=== PATIENT | male | born 1950 | race Caucasian/White ===

== ENCOUNTER → 2017-10-18 | Outpatient (CLI) | payer OTHER ==
--- NOTE | 2017-10-19 09:15 | Diagnostic Imaging Report ---
EXAMINATION: PET-CT TECHNIQUE: Serum glucose level at the time of the study is: 95 mg/dL. 12.2 mCi of FDG was administered intravenously followed by obtaining PET images with corresponding noncontrast CT scan images. The CT scan was performed for anatomic correlation and attenuation correction and was not performed according to the diagnostic protocol of the areas covered. The scan was performed from the head to mid thighs. INDICATION: Right lung mass FINDINGS: There is symmetric FDG uptake seen in the brain. There is mild activity seen in the neck around the vocal cords probably physiologic. There is a right lung apex peripheral low degree of FDG uptake with maximum SUV of 2.4. This is not particularly suspicious however the mass itself has irregular borders and is somewhat concerning. There are smaller nodules seen in the right upper lobe as well less than a centimeter in size, too small for accurate PET characterization. There is no significantly hypermetabolic lesion seen in the mediastinum or jimmie. The right hilum demonstrate borderline nonspecific uptake with maximum SUV of less than 2.5. Abdomen and pelvis: There is physiologic excretion of the tracer in the urinary tract there is a nonfocal moderate uptake seen in the colon without suspicious hypermetabolic mass seen. CT scan findings include diverticulosis with no evidence of diverticulitis. IMPRESSION: Irregular 3.4 cm mass in the right lung apex with no significant hypermetabolism. There are some satellite subcentimeter nodules also seen in the right upper lobe. The morphology and size of the mass is concerning despite the lack of significant hypermetabolism. The lesion is accessible for CT-guided biopsy which could be helpful in this case. Differential considerations may include necrotic malignancy or low-grade neoplasm such as a bronchoalveolar carcinoma versus atypical or fungal infection. Correlate clinically. Report was faxed to office of Elsa Espinoza by manoj at 9:17 am. Dictated by: Dictated on workstation # [id number]
== END ==
LOC: RAD 07:47
PROVIDERS: ATTEND Nurse Practitioner
DX: R91.8 Other nonspecific abnormal finding of lung field (principal)

== ENCOUNTER 2017-11-10 07:27 | Day surgery (SDC) | payer OTHER ==
[2017-11-10] VITALS (9 sets, daily range): BP systolic 124–146; BP diastolic 73–98
[~2017-11-10] VITALS: Ht 188 cm; Wt 74.8 kg
[2017-11-10 07:51] LABS: MEAN PLATELET VOLUME 10.3 FL (7.4-10.4); RED BLOOD COUNT 4.82 10^6/uL (4.35-5.85); RED CELL DISTRIBUTION WIDTH 12.8 % (10.0-14.5); WHITE BLOOD COUNT 5.5 10^3/uL (4.3-11.0)
[2017-11-10] MEDS ORDERED: LIDOCAINE 1% INJ 20 ML (XYLOCAINE) VIAL INJ ONE (08:00)
[2017-11-10 08:02] LABS: INR 0.9 (0.8-1.4); PROTHROMBIN TIME PATIENT 12.1 SEC (12.2-14.7)
[2017-11-10] MEDS ORDERED: LIDOCAINE 1% INJ 50 ML (XYLOCAINE) VIAL ONE (09:38)
[2017-11-10] MEDS ORDERED: fentaNYL INJECTION 100 MCG/2 ML AMP ONE (09:38)
[2017-11-10] MEDS ORDERED: HYDROcodone/APAP 5 MG/325 MG (LORTAB) TAB PO PRN (10:30)
--- NOTE | 2017-11-10 10:30 | Pre-Procedure Progress Note ---
Pre-Procedure Progress Note H&P Reviewed The H&P was reviewed, patient examined and no changes noted. Date H&P Reviewed: Nov 10, 2017 Time H&P Reviewed: 09:30 Pre-Procedure Diagnosis: right lung apex mass TRISTON VELA MD Nov 10, 2017 10:30
--- NOTE | 2017-11-10 10:56 | Diagnostic Imaging Report ---
EXAMINATION: CT-guided biopsy-lung. INDICATION: Right lung apex mass. Current history and physical and other medical records are reviewed prior to the procedure. CONSENT: Informed consent was obtained from the patient. The risks, benefits, potential complications and alternatives were reviewed and all questions answered to the patient's satisfaction. The patient's vital signs, cardiac rhythm, and pulse oximetry were observed throughout the procedure by qualified nursing personnel. Sedation/medications: none. FINDINGS: Right lung apex mass. PROCEDURE: After maximal sterile barrier technique preparation and draping, 1% lidocaine was utilized for local anesthesia. With the patient in right side down position, and via posterior intercostal approach, a 19-gauge guide needle is introduced into the right lung apex mass under CT scan guidance. After confirming adequate positioning with saved CT images, multiple 20 gauge core biopsy specimens were obtained. Autologous blood patch injected in the tract as the guide needle was removed The patient tolerated the procedure well with no immediate complications. IMPRESSION: Successful CT-guided biopsy of right lung apex mass. Dictated by: Dictated on workstation # [id number]
--- NOTE | 2017-11-10 18:19 | Diagnostic Imaging Report ---
Portable expiratory view of the chest. INDICATION: Right lung apex mass. FINDINGS: There is bilateral pleural thickening seen in the lung apices with a right lung apex mass seen. There is no pneumothorax after biopsy seen. There is interstitial thickening in the lungs, which could be related to minimal congestion or is possibly chronic. No prior studies are available for comparison. The heart size is normal. No pleural effusion. The mediastinum and jimmie appear unremarkable. IMPRESSION: No pneumothorax after biopsy of right lung apex mass. Interstitial thickening which could relate to mild vascular congestion or is possibly chronic. Dictated by: Dictated on workstation # [id number]
== END 2017-11-10 14:10 | disposition home or self-care (01) ==
LOC: 4TH 07:27 → RAD 07:27 → 4TH 10:50 → RAD 10:50
PROVIDERS: ATTEND Nurse Practitioner Family
DX: R91.8 Other nonspecific abnormal finding of lung field (principal)
CPT/HCPCS: 36415; 71035; 77012; 85027; 85610; 85730

== ENCOUNTER 2017-11-18 13:11 | Outpatient (RCR) | payer OTHER ==
[2017-11-18 13:45] LABS: BASOPHILS % (AUTO) 1 % (0-10); EOSINOPHILS % (AUTO) 1 % (0-10); HEMATOCRIT 45 % (40-54); HEMOGLOBIN 15.2 G/DL (13.3-17.7); LYMPHOCYTES # (AUTO) 1.7 X 10^3 (1.0-4.0); LYMPHOCYTES % (AUTO) 28 % (12-44); MEAN CORPUSCULAR HEMOGLOBIN 29 PG (25-34); MEAN CORPUSCULAR HGB CONC 34 G/DL (32-36); MEAN CORPUSCULAR VOLUME 86 FL (80-99); MEAN PLATELET VOLUME 10.1 FL (7.4-10.4); MONOCYTES # (AUTO) 0.4 X 10^3 (0.0-1.0); MONOCYTES % (AUTO) 7 % (0-12); NEUTROPHILS # (AUTO) 3.9 X 10^3 (1.8-7.8); NEUTROPHILS % (AUTO) 64 % (42-75); PLATELET COUNT 242 10^3/uL (130-400); RED BLOOD COUNT 5.17 10^6/uL (4.35-5.85); RED CELL DISTRIBUTION WIDTH 12.8 % (10.0-14.5); WHITE BLOOD COUNT 6.2 10^3/uL (4.3-11.0)
[2017-11-18 14:03] LABS: ALBUMIN 4.7 GM/DL (3.2-4.5); BILIRUBIN,TOTAL 1.2 MG/DL (0.1-1.0); CALCIUM 10.3 MG/DL (8.5-10.1); CREATININE SERUM 1.31 MG/DL (0.60-1.30); POTASSIUM 4.1 MMOL/L (3.6-5.0); TOTAL PROTEIN 8.3 GM/DL (6.4-8.2)
== END 2018-02-16 | disposition home or self-care (01) ==
LOC: LAB 13:11
PROVIDERS: ATTEND Internal Medicine Critical Care Medicine
DX: R91.8 Other nonspecific abnormal finding of lung field (principal)
CPT/HCPCS: 36415; 80053; 85025; 86480

== ENCOUNTER → 2017-11-18 | Outpatient (CLI) | payer OTHER | LOC: LAB 13:03 | PROVIDERS: ATTEND Internal Medicine Critical Care Medicine | DX: R91.8 Other nonspecific abnormal finding of lung field (principal) ==

== ENCOUNTER → 2018-03-01 | Outpatient (CLI) | payer OTHER ==
[~2018-03-01] MED LIST: RT-ALBUTEROL SULF 2.5 MG/3 ML PRE-MIX VIAL INH ONE
== END ==
LOC: RT 07:10
PROVIDERS: ATTEND Nurse Practitioner Family
DX: R06.00 Dyspnea, unspecified (principal); R91.8 Other nonspecific abnormal finding of lung field; Z87.891 Personal history of nicotine dependence
CPT/HCPCS: 94060; 94726; 94729

== ENCOUNTER → 2018-03-01 | Outpatient (CLI) | payer OTHER ==
[~2018-03-01] MED LIST changes: +IOHEXOL 350 MG/ML 100 ML (OMNIPAQUE 350) VIAL IV ONE; +NS 250 ML (IVPB) BAG IV ONE; -RT-ALBUTEROL SULF 2.5 MG/3 ML PRE-MIX VIAL INH ONE
[2018-03-01 07:46] LABS: CREATININE SERUM 1.44 MG/DL (0.60-1.30)
--- NOTE | 2018-03-01 08:23 | Diagnostic Imaging Report ---
PROCEDURE: CT chest with contrast only. TECHNIQUE: Multiple contiguous axial images were obtained through the chest after administration of intravenous contrast. INDICATION: Lung mass. Comparison is made with PET/CT study from 10/18/2017. No axillary lymphadenopathy is identified. No definite mediastinal or hilar lymphadenopathy is identified. No pericardial or pleural fluid is detected. Previously noted irregular opacity in the right upper lobe right apex persists and measures the same as examination from September 2017 at approximately 3.8 x 2.2 cm. Adjacent nodular opacities persist as well and are unchanged. No new parenchymal abnormality is seen. The upper abdomen is unremarkable. IMPRESSION: Stable CT chest with stable right upper lobe irregular opacity and adjacent parenchymal nodules when compared with exam from 10/18/2017. Additional CT chest followup in 6 months is recommended to show continued stability. Dictated by: Dictated on workstation # [id number]
== END ==
LOC: RAD 07:08
PROVIDERS: ATTEND Nurse Practitioner Family
DX: R91.8 Other nonspecific abnormal finding of lung field (principal)
CPT/HCPCS: 36415; 71260; 82565; 84520

== ENCOUNTER 2023-08-30 13:39 | Emergency (ER) | payer OTHER ==
[~2023-08-30] VITALS: Ht 185 cm; Wt 75.0 kg
[~2023-08-30 13:39] MED LIST changes: +CETI10TA49 PO; -IOHEXOL 350 MG/ML 100 ML (OMNIPAQUE 350) VIAL IV ONE; +LEVO50TA6 PO; -NS 250 ML (IVPB) BAG IV ONE
[2023-08-30] MEDS ORDERED: LIDOCAINE 1% INJ 10 ML VIAL ONE (13:47)
[2023-08-30 14:02] VITALS: BP 169/87
--- NOTE | 2023-08-30 14:11 | ED Upper Extremity ---
General Chief Complaint: Upper Extremity Stated Complaint: LT ARM FOREIGN OBJECT Source: patient Exam Limitations: no limitations History of Present Illness Date Seen by Provider: Aug 30, 2023 Time Seen by Provider: 13:48 Initial Comments 73-year-old right handed male patient stated he was using nail gun at home and accidentally punctured his left forearm with a nail and was not able to remove the nail by himself. Patient rated his pain as a mild pain. Patient is up-to-date with his tetanus immunization. Patient denies other injuries, focal neurodeficit, diabetes and taking blood thinner medication. Onset: just prior to arrival Allergies and Home Medications Allergies Coded Allergies: No Known Drug Allergies (Unverified , 11/10/17) Patient Home Medication List Home Medication List Reviewed: Yes Cephalexin (Cephalexin) 500 Mg Tablet, 500 MG PO q 8 hours Prescribed by: Neli alegria on 08/30/23 1415 Cetirizine HCl (Zyrtec) 10 Mg Tablet, 10 MG PO DAILY, (Reported) Entered as Reported by: KASSIDY AMATO on 04/10/18 1515 Levothyroxine Sodium (Levothyroxine Sodium) 50 Mcg Tablet, 50 MCG PO DAILY, (Reported) Entered as Reported by: KASSIDY AMATO on 04/10/18 1515 Review of Systems Constitutional: no symptoms reported EENTM: no symptoms reported Respiratory: no symptoms reported Cardiovascular: no symptoms reported Gastrointestinal: no symptoms reported Genitourinary: no symptoms reported Musculoskeletal: see HPI Skin: see HPI Psychiatric/Neurological: No Symptoms Reported All Other Systems Reviewed Negative Unless Noted: Yes Past Yzfejby-Zorcgt-Ljugwv Hx Patient Social History Tobacco Use?: No Use of E-Cig and/or Vaping dev: No Substance use?: No Alcohol Use?: No Seasonal Allergies Seasonal Allergies: Yes Past Medical History Eye Surgery Arthritis, Chronic Back Pain, Fractures Cataract Physical Exam Vital Signs Vital Signs - First Documented 08/30/23 14:02 Temp 36.4 Pulse 83 Resp 16 B/P (MAP) 169/87 (114) Pulse Ox 95 O2 Delivery Room Air Capillary Refill : Height, Weight, BMI Height: 6'2.00" Weight: 165lbs. 0.0oz. [id number]; 21.2 BMI Method: General Appearance: WD/WN, no apparent distress HEENT: PERRL/EOMI Neck: non-tender, full range of motion Cardiovascular: regular rate, rhythm, no edema, no gallop Respiratory: chest non-tender, lungs clear, normal breath sounds, no respiratory distress, no accessory muscle use Back: normal inspection Shoulder: normal inspection Elbow/Forearm: Left (Nail stuck in left distal forearm without active) Wrist: Yes normal inspection Hand: normal inspection Neurologic/Tendon: normal sensation, normal motor functions Neurologic/Psychiatric: alert, normal mood/affect Skin: normal color Procedures/Interventions Progress Left forearm foreign body removal: After cleaning radial side of left forearm with nail in place, with scalpel size 11 small incision was made on top of the 3 cm nail nail with the atul was removed without problem. The area was cleaned with normal saline. Triple antibiotic was applied and pressure dressing was placed. Progress/Results/Core Measures Results/Orders My Orders Orders - NELI ALEGRIA MD Lidocaine 1% Inj 10 Ml (Xylocaine 1% Inj (08/30/23 13:47) Medications Given in ED Current Medications Medications Dose Ordered Sig/Janis Route Start Time Stop Time Status Last Admin Dose Admin Lidocaine HCl 10 ml STK-MED ONCE .ROUTE 08/30/23 13:47 08/30/23 13:50 DC 08/30/23 14:01 10 ML Vital Signs/I&O 08/30/23 14:02 Temp 36.4 Pulse 83 Resp 16 B/P (MAP) 169/87 (114) Pulse Ox 95 O2 Delivery Room Air Progress Progress Note : Progress Note Differential diagnosis: Metal foreign body of forearm, infection Patient with nail stuck in left forearm that was removed with injection of lidocaine 1% and opening the puncture area by a scalpel size 11. 3 cm nail with atul was removed completely and the area was irrigated with normal saline and pressure dressing was applied. Patient tolerated the procedure well. Patient is not diabetic and does not take blood thinner medication. Patient advised to take Tylenol and ibuprofen as needed for pain and follow-up with primary care physician. Plan to give prescription for cephalexin. Departure Impression Primary Impression: Foreign body in left forearm Qualified Codes: S50.852A - Superficial foreign body of left forearm, initial encounter Disposition: 01 HOME, SELF-CARE Condition: Improved Departure-Patient Inst. Decision time for Depature: 14:13 Referrals: NO,LOCAL PHYSICIAN (PCP) Primary Care Physician Patient Instructions: Taking care of cuts, scrapes, and puncture wounds Add. Discharge Instructions: Keep wound clean and dry Follow-up with your primary care physician in 3 to 5 days Return to ER as needed May take [id number] Tylenol or ibuprofen as needed for pain All discharge instructions reviewed with patient and/or family. Voiced understanding. Scripts Cephalexin (Cephalexin) 500 Mg Tablet 500 MG PO q 8 hours, #15 TAB 0 Refills Prov: NELI ALEGRIA MD 08/30/23 NELI ALEGRIA MD Aug 30, 2023 14:11
[2023-08-30] MEDS ORDERED: CEPH500T PO (14:15)
== END 2023-08-30 14:22 | disposition home or self-care (01) ==
LOC: EDUNIT# 13:39 → ER FS 13:40
DX: S50.852A Superficial foreign body of left forearm, initial encounter (principal); W45.0XXA Nail entering through skin, initial encounter
CPT/HCPCS: 24200